=== PATIENT | male | born 1975 | race Caucasian/White ===

== ENCOUNTER 2018-01-11 20:30 | Emergency (ER) | payer SELFPAY ==
[2018-01-11] MEDS ORDERED: predniSONE TAB* 20 MG PO ONE (21:06)
[2018-01-11] MEDS ORDERED: Gabapentin CAP(*) 300 MG PO ONE (21:07)
[2018-01-11 21:15] VITALS: BP 141/98
--- NOTE | 2018-01-11 21:35 | ED ---
Héctor Wheeler Stephanie, scribed for Alen Chiang MD on 01/11/18 at 2107 . Upper Extremity Pain - HPI Summary HPI Summary: The pt is a 42 y/o M presenting to the ED with c/o L arm tingling and pain that began 3 weeks ago. He states that if he turns his neck or moves his L UE he feels a shooting pain from his shoulder to his elbow and numbness/tingling when he changes position. He denies recent injury or L UE weakness. The pt states he took a muscle relaxer which did not help his pain/numbness/tingling. - History of Current Complaint Chief Complaint: EDExtremityLower Stated Complaint: LT ARM INJURY Time Seen by Provider: 01/11/18 21:01 Hx Obtained From: Patient Mechanism Of Injury: Unknown Onset/Duration: Started Weeks Ago - 3 Timing: Constant Severity Currently: Moderate Pain Location: Arm - L Character: Sharp Aggravating Factor(s): Movement Alleviating Factor(s): Other - position Associated Signs & Symptoms: Positive: Negative - L UE weakness, Numbness/ Tingling - L arm - Allergies/Home Medications Allergies/Adverse Reactions: Allergies Allergy/AdvReac Type Severity Reaction Status Date / Time meperidine [From Demerol] Allergy Vomiting Verified 12/08/17 11:17 PMH/Surg Hx/FS Hx/Imm Hx Sensory History: Denies: Hx Legally Blind EENT History: Denies: Hx Deafness - Surgical History Surgery Procedure, Year, and Place: lt hand, lt knee Infectious Disease History: No Infectious Disease History: Denies: Traveled Outside the [place] in Last 30 Days - Family History Known Family History: Negative: Renal Disease - Social History Occupation: Employed Full-time Lives: With Family Alcohol Use: None Hx Substance Use: No Substance Use Type: Reports: None Hx Tobacco Use: Yes Smoking Status (MU): Heavy Every Day Tobacco Smoker Have You Smoked in the Last Year: Yes Review of Systems Negative: Fever Neurological: Other - L UE tingling Positive: Numbness - L UE. Negative: Weakness - L UE All Other Systems Reviewed And Are Negative: Yes Physical Exam - Summary Physical Exam Summary: Appearance: Well-appearing, Well-nourished, lying in bed comfortably Skin: Warm, dry, no obvious rash Eyes: sclera anicteric, no conjunctiva pallor ENT: mucous membranes moist, pharynx appears normal Neck: Supple, nontender, ROM good, reproducible pain with movement with L posterior neck, paresthesia back of L arm, strength in biceps and triceps nml, brachioradialis and biceps tendon reflex nml Respiratory: Clear to auscultation, no signs of respiratory distress Cardiovascular: Normal S1, S2. No murmurs. Normal distal pulses in tibial and radial bilaterally. Abdomen: Soft, nontender, normal active bowel sounds present Musculoskeletal: Normal, Strength/ROM Intact Neurological: A&Ox3, awake and alert, mentation is normal, speech is fluent and appropriate Psychiatric: affect is normal, does not appear anxious or depressed Triage Information Reviewed: Yes Vital Signs On Initial Exam: Initial Vitals Temp Pulse Resp BP Pulse Ox 98.5 F 102 20 140/88 98 01/11/18 20:31 01/11/18 20:31 01/11/18 20:31 01/11/18 20:31 01/11/18 20:31 Vital Signs Reviewed: Yes Diagnostics - Vital Signs Vital Signs Temp Pulse Resp BP Pulse Ox 01/11/18 20:31 98.5 F 102 20 140/88 98 - Laboratory Lab Statement: Any lab studies that have been ordered have been reviewed, and results considered in the medical decision making process. Course/Dx - Diagnoses Provider Diagnoses: Cervical radiculopathy Discharge - Sign-Out/Discharge Documenting (check all that apply): Discharge/Admit/Transfer - Discharge Plan Condition: Good Disposition: HOME Prescriptions: Gabapentin CAP(*) [Neurontin 300 CAP(*)] 300 mg PO BID #20 cap predniSONE [Prednisone] 40 mg PO DAILY #20 tablet Patient Education Materials: Cervical Radiculopathy (ED) Referrals: Savanna Byrd MD [Medical Doctor] - - Billing Disposition and Condition Condition: GOOD Disposition: HOME The documentation as recorded by the Héctor mckenzie Stephanie accurately reflects the service I personally performed and the decisions made by , Alen Chiang MD.
== END 2018-01-11 22:10 | disposition home or self-care (01) ==
LOC: ED 20:30
DX: M54.12 Radiculopathy, cervical region (principal); F17.200 Nicotine dependence, unspecified, uncomplicated; Z88.5 Allergy status to narcotic agent
CPT/HCPCS: 99282; A9270-GY; J7512

== ENCOUNTER 2018-01-14 16:39 | Emergency (ER) | payer SELFPAY ==
[2018-01-14] MEDS ORDERED: Diazepam TAB(*) 5 MG PO ONE (18:18)
[2018-01-14] MEDS ORDERED: HYDROcodone/ACETAMIN 5-325 MG* 1 TAB PO ONE (19:06)
--- NOTE | 2018-01-14 19:13 | ED ---
Upper Extremity Pain - HPI Summary HPI Summary: Complains of progressive left shoulder pain with radiation down left arm, numbness and tingling in left hand 3 weeks. Pain described as constant, sharp. States he cannot use his left hand due to pain it causes in his arm. Patient denies trauma, fever. Seen here 01/11 for same symptoms, diagnosed with cervical radiculopathy, given prescription for gabapentin and prednisone. States those medications made him vomit, and provided no relief. Also states he has had no relief with tramadol, ibuprofen, naproxen. Was told to follow up with orthopedics, but did not. Medical history is none. - History of Current Complaint Chief Complaint: EDExtremityUpper Stated Complaint: LT UPPER EXTREMITY PAIN Time Seen by Provider: 01/14/18 17:49 Hx Obtained From: Patient Mechanism Of Injury: Unknown Onset/Duration: Started Weeks Ago Timing: Constant Pain Location: Shoulder, Arm, Hand Character: Sharp Aggravating Factor(s): Lifting, Flexion, Extension Alleviating Factor(s): Nothing Associated Signs & Symptoms: Positive: Numbness/Tingling Related History: Dominant Hand Left - Allergies/Home Medications Allergies/Adverse Reactions: Allergies Allergy/AdvReac Type Severity Reaction Status Date / Time meperidine [From Demerol] AdvReac Vomiting Verified 01/14/18 17:34 medication with plastic Allergy Swelling Uncoded 01/14/18 17:35 coating Of Face,Lips,& Throat PMH/Surg Hx/FS Hx/Imm Hx Sensory History: Denies: Hx Legally Blind, Hx Deafness Opthamlomology History: Denies: Hx Legally Blind - Surgical History Surgery Procedure, Year, and Place: lt hand, lt knee Infectious Disease History: No Infectious Disease History: Denies: Traveled Outside the [place] in Last 30 Days - Family History Known Family History: Positive: None Negative: Renal Disease - Social History Alcohol Use: None Hx Substance Use: No Substance Use Type: Reports: None Hx Tobacco Use: Yes Smoking Status (MU): Heavy Every Day Tobacco Smoker Have You Smoked in the Last Year: Yes Review of Systems Constitutional: Negative Eyes: Negative ENT: Negative Cardiovascular: Negative Respiratory: Negative Gastrointestinal: Negative Genitourinary: Negative Positive: Myalgia Skin: Negative Neurological: Negative Psychological: Normal All Other Systems Reviewed And Are Negative: Yes Physical Exam - Summary Physical Exam Summary: No erythema, extra warmth, deformity, ecchymosis noted to left shoulder, left elbow, left wrist. Sensation and function and range of motion and PMS intact. 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 Tenderness to palpation in left trapezius muscle, and along left scapula, left deltoid, left triceps and biceps. Triage Information Reviewed: Yes Vital Signs On Initial Exam: Initial Vitals Temp Pulse Resp BP Pulse Ox 98.9 F 94 16 126/74 97 01/14/18 16:42 01/14/18 16:42 01/14/18 16:42 01/14/18 16:42 01/14/18 16:42 Vital Signs Reviewed: Yes Appearance: Positive: Well-Appearing Skin: Positive: Warm Head/Face: Positive: Normal Head/Face Inspection Eyes: Positive: Normal Neck: Positive: Supple Respiratory/Lung Sounds: Positive: Clear to Auscultation Cardiovascular: Positive: Normal Abdomen Description: Positive: Nontender Musculoskeletal: Positive: Normal Neurological: Positive: Normal Psychiatric: Positive: Normal AVPU Assessment: Alert - Jose L Coma Scale Best Eye Response: 4 - Spontaneous Best Motor Response: 6 - Obeys Commands Best Verbal Response: 5 - Oriented Coma Scale Total: 15 Diagnostics - Vital Signs Vital Signs Temp Pulse Resp BP Pulse Ox 01/14/18 18:27 16 01/14/18 16:42 98.9 F 94 16 126/74 97 - Laboratory Lab Statement: Any lab studies that have been ordered have been reviewed, and results considered in the medical decision making process. Course/Dx - Course Course Of Treatment: Vital signs unremarkable. Left shoulder pain and numbness without known trauma. Recent evaluation for same on 01/07. Has not followed up with orthopedics. States tramadol, ibuprofen, naproxen have provided no relief. Gabapentin and prednisone prescribed last visit provided no relief and made patient vomit. [facility] has been checked reference #[id number], patient has no record of opioid prescriptions though he has access to tramadol. We'll provide prescription of hydrocodone for 2 days and repeat need for orthopedic follow-up - Diagnoses Provider Diagnoses: Cervical radiculopathy Discharge - Sign-Out/Discharge Documenting (check all that apply): Discharge/Admit/Transfer - Discharge Plan Condition: Stable Disposition: HOME Prescriptions: HYDROcodone/ACETAMIN 5-325 MG* [[place] 5-325 TAB*] 1 tab PO Q6H PRN 2 Days #6 tab MDD 4-6 tabs PRN Reason: Pain Patient Education Materials: Cervical Radiculopathy (ED) Referrals: No Primary Care Phys,NOPCP [Primary Care Provider] - Bear Miller MD [Medical Doctor] - Additional Instructions: Follow-up with orthopedics. Return to the ED for any new or worsening symptoms - Billing Disposition and Condition Condition: STABLE Disposition: HOME
[2018-01-14 19:42] VITALS: BP 126/86
== END 2018-01-14 19:37 | disposition home or self-care (01) ==
LOC: ED 16:39
DX: M54.12 Radiculopathy, cervical region (principal); F17.200 Nicotine dependence, unspecified, uncomplicated; Z88.5 Allergy status to narcotic agent
CPT/HCPCS: 99282; A9270-GY

== ENCOUNTER 2018-02-02 15:10 | Emergency (ER) | payer SELFPAY ==
[2018-02-02 15:22] VITALS: BP 157/94
--- NOTE | 2018-02-02 17:14 | ED ---
Upper Extremity Pain - HPI Summary HPI Summary: Patient complains of left shoulder pain times months. Has been evaluated here multiple times for same. Imaging negative. Denies any new trauma. Patient finally followed up with Ortho and was given a cortisone shot which patient says made pain worse. Patient was prescribed prednisone and gabapentin for pain but states these make him nauseous and he cannot take the medication. Patient states he is taking ibuprofen with no relief. States cannot get another appointment with Ortho for 6 weeks, was never given a formal diagnosis by Ortho, and cannot afford PCP. Wants ED to fix his pain and do an MRI. Patient told that we cannot do an MRI for nonemergent shoulder pain nor can we treat a chronic condition with opioid medication. Patient was offered meloxicam in place of ibuprofen, but got angry and walked out. - History of Current Complaint Chief Complaint: EDExtremityUpper Stated Complaint: LT SHOULDER & ARM PAIN Time Seen by Provider: 02/02/18 16:34 Hx Obtained From: Patient Mechanism Of Injury: Unknown Onset/Duration: Started Weeks Ago Timing: Constant Severity Currently: Severe Pain Location: Shoulder Character: Sharp, Aching Aggravating Factor(s): Movement, Abduction Alleviating Factor(s): Nothing Associated Signs & Symptoms: Positive: Numbness/Tingling - Allergies/Home Medications Allergies/Adverse Reactions: Allergies Allergy/AdvReac Type Severity Reaction Status Date / Time meperidine [From Demerol] AdvReac Vomiting Verified 02/02/18 15:32 medication with plastic Allergy Swelling Uncoded 02/02/18 15:32 coating Of Face,Lips,& Throat Home Medications: Home Medications Ibuprofen TAB* [Motrin TAB* 800 MG] 800 mg PO Q6H 02/02/18 [History Confirmed ] Naproxen TAB* [Naprosyn 250 mg TAB*] 500 mg PO Q8H PRN 02/02/18 [History Confirmed 02/02/18] PMH/Surg Hx/FS Hx/Imm Hx Sensory History: Denies: Hx Legally Blind, Hx Deafness Opthamlomology History: Denies: Hx Legally Blind - Surgical History Surgery Procedure, Year, and Place: lt hand, lt knee Infectious Disease History: No Infectious Disease History: Denies: Traveled Outside the [place] in Last 30 Days - Family History Known Family History: Positive: None Negative: Renal Disease - Social History Alcohol Use: None Hx Substance Use: No Substance Use Type: Reports: None Hx Tobacco Use: Yes Smoking Status (MU): Light Every Day Tobacco Smoker Have You Smoked in the Last Year: Yes Review of Systems Constitutional: Negative Eyes: Negative ENT: Negative Cardiovascular: Negative Respiratory: Negative Gastrointestinal: Negative Genitourinary: Negative Positive: Arthralgia Skin: Negative Neurological: Negative Psychological: Normal All Other Systems Reviewed And Are Negative: Yes Physical Exam - Summary Physical Exam Summary: No ecchymosis, erythema, swelling, deformity noted to left shoulder joint Triage Information Reviewed: Yes Vital Signs On Initial Exam: Initial Vitals Temp Pulse Resp BP Pulse Ox 97.8 F 81 16 157/94 99 02/02/18 15:19 02/02/18 15:19 02/02/18 15:19 02/02/18 15:19 02/02/18 15:19 Vital Signs Reviewed: Yes Appearance: Positive: Well-Appearing Skin: Positive: Warm Head/Face: Positive: Normal Head/Face Inspection Eyes: Positive: Normal Neck: Positive: Supple Respiratory/Lung Sounds: Positive: Clear to Auscultation Cardiovascular: Positive: Normal Abdomen Description: Positive: Nontender Musculoskeletal: Positive: Other Neurological: Positive: Normal Psychiatric: Positive: Normal AVPU Assessment: Alert - [place] Coma Scale Best Eye Response: 4 - Spontaneous Best Motor Response: 6 - Obeys Commands Best Verbal Response: 5 - Oriented Coma Scale Total: 15 Diagnostics - Vital Signs Vital Signs Temp Pulse Resp BP Pulse Ox 02/02/18 15:19 97.8 F 81 16 157/94 99 - Laboratory Lab Statement: Any lab studies that have been ordered have been reviewed, and results considered in the medical decision making process. Course/Dx - Course Course Of Treatment: Patient eloped before treatment. Patient threatened to complain because he wasted all his time and no one was taking care of his problem. - Diagnoses Provider Diagnoses: Chronic left shoulder pain Discharge - Sign-Out/Discharge Documenting (check all that apply): Discharge/Admit/Transfer - Discharge Plan Condition: Stable Disposition: ELOPEMENT Referrals: No Primary Care Phys,NOPCP [Primary Care Provider] - - Billing Disposition and Condition Condition: STABLE Disposition: Elopement
== END 2018-02-02 17:06 | disposition home or self-care (01) ==
LOC: ED 15:10
DX: M25.512 Pain in left shoulder (principal); R20.0 Anesthesia of skin; Z88.5 Allergy status to narcotic agent; F17.200 Nicotine dependence, unspecified, uncomplicated
CPT/HCPCS: 99282

== ENCOUNTER 2018-02-02 17:33 | Emergency (ER) | payer OTHER ==
[2018-02-02 17:56] VITALS: BP 124/79
--- NOTE | 2018-02-02 18:30 | UC ---
Shoulder Pain HPI - HPI Summary HPI Summary: Patient to urgent care today with chief complaint of 2 months of left shoulder pain. No known injury. Has seen an orthopedic doctor in gotten a steroid injection without any relief. Patient has pain and scapular his shoulder radiating down his arm into his hand with numbness and tingling in his hand. - History of Current Complaint Chief Complaint: UCUpperExtremity Stated Complaint: SHOULDER INJURY Time Seen by Provider: 02/02/18 17:54 Hx Obtained From: Patient Onset/Duration: Gradual Onset, Lasting Weeks - 8, Still Present Timing: Constant Location Of Pain: Is Discrete @ Pain Intensity: 10 Pain Scale Used: 0-10 Numeric Character: Aching, Throbbing, Spasmodic, Stiffness, Burning Aggravating Factor(s): Movement, Lifting Alleviating Factor(s): Nothing Associated Signs And Symptoms: Positive: Numbness/Tingling Related History: Dominant Hand Right - Allergies/Home Medications Allergies/Adverse Reactions: Allergies Allergy/AdvReac Type Severity Reaction Status Date / Time meperidine [From Demerol] AdvReac Vomiting Verified 02/02/18 17:56 medication with plastic Allergy Swelling Uncoded 02/02/18 15:32 coating Of Face,Lips,& Throat PMH/Surg Hx/FS Hx/Imm Hx Previously Healthy: Yes - Surgical History Surgical History: Yes Surgery Procedure, Year, and Place: lt hand, lt knee - Family History Known Family History: Positive: None Negative: Renal Disease - Social History Occupation: Employed Full-time Lives: With Family Alcohol Use: None Substance Use Type: None Smoking Status (MU): Light Every Day Tobacco Smoker Have You Smoked in the Last Year: Yes Review of Systems Constitutional: Negative Skin: Negative Eyes: Negative ENT: Negative Respiratory: Negative Cardiovascular: Negative Gastrointestinal: Negative Genitourinary: Negative Motor: Negative Neurovascular: Negative Musculoskeletal: Arthralgia - left shoulder radiating in to forearm and hand Neurological: Paresthesia - left hand Psychological: Negative Is Patient Immunocompromised?: No All Other Systems Reviewed And Are Negative: Yes Physical Exam Triage Information Reviewed: Yes Appearance: Well-Appearing, Well-Nourished, Pain Distress Vital Signs: Initial Vital Signs Temp 99 F 02/02/18 17:46 Pulse 76 02/02/18 17:46 Resp 20 02/02/18 17:46 BP 124/79 02/02/18 17:46 Pulse Ox 95 02/02/18 17:46 Vital Signs Reviewed: Yes Eye Exam: Normal Eyes: Positive: Conjunctiva Clear ENT Exam: Normal ENT: Positive: Normal ENT inspection, Hearing grossly normal. Negative: Trismus , Muffled voice, Hoarse voice Dental Exam: Normal Neck exam: Normal Neck: Positive: Supple, Nontender, No Lymphadenopathy Respiratory Exam: Normal Respiratory: Positive: Chest non-tender, No respiratory distress, No accessory muscle use Cardiovascular Exam: Normal Cardiovascular: Positive: RRR, Pulses Normal, Brisk Capillary Refill Musculoskeletal Exam: Other Musculoskeletal: Positive: No Edema, Strength Limited @ - left arm, ROM Limited @ - left shoulder Neurological Exam: Normal Neurological: Positive: Alert, Muscle Tone Normal Psychological Exam: Normal Skin Exam: Normal Diagnostics - Radiology No standard instances Xray Interpretation: Positive (See Comments) - Patient Name: KATERYNA LITTLEJOHN Medical Record#: [id number] Ordering Physician: Blanca Willoughby NP Acct.#: [id number] : 1975 Age: 42 Sex: M Location: [facility] Exam Date: 02/02/181811 ADM Status: REG ER Order Information: SP CERVICAL 4+VWS Accession Number: [id number] CPT: 74321 Indication: Left shoulder pain. 5 views of the cervical spine demonstrates vertebral bodies to be normal in height. Disc space scarring at C5-C6 is noted with dorsal and ventral osteophyte formation. Spinal canal appears to be intact. IMPRESSION: Degenerative disc disease with spondylytic ridge at C5-C6. No fracture is noted. <Electronically signed by Radha Denton MD in OV> 02/02/181831 Dictated By: Radha Denton MD Dictated Date/Time: 02/02/181831 Transcribed Date/Time: 02/02/181830 Copy to: CC:Krista Harvey MD; Blanca Willoughby NP; No Primary Care Phys,NOPCP Imaging - [facility] Imaging [facility] Care [address] [address] ph [phone] ph ([phone]) ph ([phone]) 1 of 1 Radiology Interpretation Completed By: ED Physician, Radiologist Shoulder Course/Dx - Course Assessment/Plan: Medrol Dosepak, Flexeril, Pepcid, referral to extensivist clinic if he's unable to get in to see primary care doctor referrals for primary care doctor this week for further evaluation - Differential Dx/Diagnosis Provider Diagnoses: Spondylytic ridge C5-C6, degenerative disc disease, left shoulder pain Discharge - Sign-Out/Discharge Documenting (check all that apply): Discharge/Admit/Transfer - Discharge Plan Condition: Stable Disposition: HOME Prescriptions: Cyclobenzaprine TAB* [Flexeril 10 MG TAB*] 10 mg PO TID PRN #21 tab PRN Reason: Pain Famotidine TAB 40 MG(NF) [Pepcid TAB 40 MG(NF)] 40 mg PO DAILY #14 tab methylPREDNISolone [Medrol] 4 mg PO .SEE RODRIGO INSTRUCTION #1 rodrigo Patient Education Materials: Degenerative Disc Disease (ED), Spondylolisthesis (ED) [place] [facility] [place]] - 2 Days Additional Instructions: [facility] or the free clinic in [place] can help you with insurance if that is an issue with getting a primary care doctor-- Kateryna if you having trouble getting a primary care doctor this week I want to call [phone] and asked for the extensivist clinic on the third floor. This is a clinic the hospital has set up for folks could not get into primary care doctor's in a timely fashion. - Billing Disposition and Condition Condition: STABLE Disposition: Home
--- NOTE | 2018-02-02 18:35 | RAD ---
Indication: Left shoulder pain. 5 views of the cervical spine demonstrates vertebral bodies to be normal in height. Disc space scarring at C5-C6 is noted with dorsal and ventral osteophyte formation. Spinal canal appears to be intact. IMPRESSION: Degenerative disc disease with spondylytic ridge at C5-C6. No fracture is noted.
== END 2018-02-02 19:30 | disposition home or self-care (01) ==
LOC: UCEAST 17:33
DX: M50.322 Other cervical disc degeneration at C5-C6 level (principal); M47.812 Spondylosis without myelopathy or radiculopathy, cervical region; Z88.2 Allergy status to sulfonamides; F17.200 Nicotine dependence, unspecified, uncomplicated
CPT/HCPCS: 72050; 99212; G0463

== ENCOUNTER 2018-09-30 05:47 | Inpatient (IN) | payer MEDICAID, OTHER ==
[~2018-09-30 05:47] MED LIST: Buffered Lidocaine 1% SYRIN* 1 ML/SYRINGE INTRADERM ONE
--- OUTSIDE RECORDS SUMMARY | 2018-09-30 05:51 | XMS REPORT | Continuity of Care Document ---
:1975 External Reference #:[id number] Author Name Radha Cruz Care Team Providers Name Role Phone Luz Maria Durham MD Primary Care Physician Unavailable Payers Type Date Identification Numbers Payment Provider Subscriber Effective: 2017 Policy Number: [id number] Medicaid Lloyd Tom Expires: 2018 Group Name: 1 1 [address] PayID: [id number] [place] [address] Expires: 2018 Policy Number: [id number] [facility] PayID: [id number] [address] [address] [place] [address] Effective: 2018 Policy Number: [id number] [employer] Lloyd Tom PayID: [id number] [address] [address] [place] [address] Advance Directives Description No Information Available Problems Date Description Provider Status Onset: 03/16/2018 Traumatic brain injury Wesley Amador M.D. Active Family History Date Family Member(s) Problem(s) Comments Father Unknown Mother due to Edema in legs () - Leg injury after skiing accident Siblings 1 Social History Type Date Description Comments Sex Unknown Marital Status Significant Other Lives With Spouse Lives With Girlfriend Occupation Unemployed Work Status Currently Working ETOH Use Denies alcohol use Recreational Drug Use Denies Drug Use Tobacco Use Start: Unknown End: Patient is a former smoker Unknown Smoking Status Reviewed: 09/02/18 Patient is a former smoker Exercise Type/Frequency Exercises regularly Allergies, Adverse Reactions, Alerts Date Description Reaction Status Severity Comments 01/19/2018 Demerol Active 03/16/2018 Plastic Active Medications Medication Date Status Form Strength Qnty SIG Indications Ordering Provider Hydrocodone-Acetam Active Tablets 10-325mg Take 1 Unknown inophen /0000 Tablet By Mouth Every 4 Hours as Needed For Pain -- Maximum Daily Dose Of 6 Per Day Hydrocodone-Acetam 03/12 Hx Tablets 325mg 28tab 1 tab by Moustapha walton s mouth 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, [employer] - 6 hours as 03/12 needed for pain Meloxicam 03/12 Hx Tablets 7.5mg 60tab 1 -2 tablet M54.12 s by mouth Rosina, [employer] [facility] - once daily 09/02 as needed with food Hydrocodone-Acetam 03/12 Hx Tablets 5-325mg 120ta 1 tab by Moustapha walton bs mouth 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, [employer] - 6 hours as 09/02 needed for pain No Active 02/12 Hx Unknown Medications - 03/12 Naproxen 01/19 Hx Tablets 500mg 28tab take one M75.52 s tablet by F - mouth every Nita, 02/12 12 hours as needed for pain and swelling for 2 weeks. take with food. Hydrocodone-Acetam Hx Tablets 5-325mg 1 or 2 tabs Unknown inophen /0000 by mouth - every 6-8 01/18 hours needed for pain Prednisone Hx Solution 5mg/5ML 20 Unknown /0000 milliliters - every day 01/18 for 4 days then taper by 5 milliliters daily until stopped Cyclobenzaprine Hx Tablets 10mg Take 1 Unknown HCL /0000 Tablet By - Mouth Three 02/12 Times Daily as Needed For Pain Famotidine Hx Tablets 40mg Take 1 Unknown /0000 Tablet By - Mouth Every Methylprednisolone Hx TBPK 4mg Take as Unknown /0000 Directed - According 02/12 To Famotidine Hx Tablets 40mg 1 by mouth Unknown /0000 every day - 03/15 Mobic Hx Tablets 7.5mg 1 by mouth Unknown /0000 every day - 09/02 Morphine Sulfate Hx Tablets 15mg take 1 tab Unknown /0000 by mouth - every 6 / hours needed for breakthroug h pain Medications Administered in Office Medication Date Status Form Strength Qnty SIG Indications Ordering Provider Depomedrol Administered Injection Jono F 40MG 018 MD Nita Depomedrol Administered Injection Lucy 40MG 018 Marker, RPA-C Immunizations Description No Information Available Vital Signs Date Vital Result Comment 09/02/2018 1:01pm Height 68.25 inches 5'8.25" Weight 199.00 lb Heart Rate 77 /min BP Systolic 133 mmHg BP Diastolic 88 mmHg Body Temperature 98.1 F Pain Level 8 O2 % BldC Oximetry 97 % BMI (Body Mass Index) 30.0 kg/m2 08/26/2018 10:33am Height 70 inches 5'10" Heart Rate 88 /min Respiratory Rate 19 /min Pain Level 9 07/29/2018 10:25am Height 70 inches 5'10" Weight 200.00 lb Heart Rate 79 /min BP Systolic 126 mmHg BP Diastolic 83 mmHg Body Temperature 98.5 F O2 % BldC Oximetry 96 % BMI (Body Mass Index) 28.7 kg/m2 07/19/2018 12:07pm Height 70 inches 5'10" Weight 199.00 lb BP Systolic Sitting 130 mmHg BP Diastolic Sitting 80 mmHg Pain Level 9 BMI (Body Mass Index) 28.6 kg/m2 06/21/2018 2:29pm Height 70 inches 5'10" Weight 199.00 lb Heart Rate 69 /min Respiratory Rate 16 /min Pain Level 9 BMI (Body Mass Index) 28.6 kg/m2 06/15/2018 11:13am Height 70 inches 5'10" Weight 199.00 lb BP Systolic Sitting 122 mmHg BP Diastolic Sitting 70 mmHg Pain Level 8 BMI (Body Mass Index) 28.6 kg/m2 03/16/2018 3:11pm Height 70 inches 5'10" Weight 199.00 lb Heart Rate 72 /min BP Systolic 126 mmHg BP Diastolic 68 mmHg BMI (Body Mass Index) 28.6 kg/m2 03/12/2018 8:27am Height 70 inches 5'10" Weight 199.75 lb Heart Rate 88 /min BP Systolic 132 mmHg BP Diastolic 80 mmHg Body Temperature 97.1 F O2 % BldC Oximetry 97 % BMI (Body Mass Index) 28.7 kg/m2 03/05/2018 3:40pm Height 70 inches 5'10" Weight 180.00 lb BP Systolic Sitting 150 mmHg BP Diastolic Sitting 90 mmHg Pain Level 8 BMI (Body Mass Index) 25.8 kg/m2 02/12/2018 8:50am Height 70 inches 5'10" Weight 180.00 lb BP Systolic Sitting 130 mmHg BP Diastolic Sitting 90 mmHg Pain Level 8 BMI (Body Mass Index) 25.8 kg/m2 02/04/2018 2:27pm Height 70 inches 5'10" Weight 180.00 lb Heart Rate 78 /min BP Systolic 138 mmHg BP Diastolic 80 mmHg Respiratory Rate 12 /min Body Temperature 98.5 F Pain Level 10 BMI (Body Mass Index) 25.8 kg/m2 01/19/2018 1:33pm Height 70 inches 5'10" Weight 180.00 lb Heart Rate 80 /min BP Systolic 140 mmHg BP Diastolic 78 mmHg Respiratory Rate 12 /min Pain Level 9 BMI (Body Mass Index) 25.8 kg/m2 Results Test Date Facility Test Result H/L Range Note Order 09/02/2018 [facility] In-House EKG <pending> Lipid Profile 03/16/2018 [facility] Triglycerides 119 mg/dL 1 (Trig/Chol/HDL) [address] [place] [address] [phone] Cholesterol 214 mg/dL 2 HDL Cholesterol 60.5 mg/dL 3 LDL Cholesterol 130 mg/dL 4 Comp Metabolic Panel 03/16/2018 [facility] Sodium 139 mmol/L N 135-145 [address] [place] [address] [phone] Potassium 4.2 mmol/L N 3.5-5.0 Chloride 103 mmol/L N 101-111 Co2 Carbon Dioxide 26 mmol/L N 22-32 Anion Gap 10 mmol/L N 2-11 Glucose 95 mg/dL N 70-100 Blood Urea Nitrogen 17 mg/dL N 6-24 Creatinine 0.89 mg/dL N 0.67-1.17 BUN/Creatinine Ratio 19.1 N 8-20 Calcium 9.6 mg/dL N 8.6-10.3 Total Protein 7.2 g/dL N 6.4-8.9 Albumin 4.7 g/dL N 3.2-5.2 Globulin 2.5 g/dL N 2-4 Albumin/Globulin Ratio 1.9 N 1-3 Total Bilirubin 0.50 mg/dL N 0.2-1.0 Alkaline Phosphatase 42 U/L N 34-104 Alt 33 U/L N 7-52 Ast 23 U/L N 13-39 Egfr Non- 94.7 >60 Egfr 114.6 >60 5 Drug Abuse 20 03/12/2018 [facility] Urine Amphetamine Negative ng/mL [address] [place] [address] [phone] Urine Barbiturates Negative ng/mL 7 Urine Benzodiazepines Negative ng/mL 8 Urine Cocaine Negative ng/mL 9 Urine Phencyclidine Negative ng/mL Cutoff: 25 Urine Tetrahydrocannabinol Presumptive Posi <SEE NOTE> Abnormal Cutoff: 50 10 ng/mL Creatinine, Urine 142.2 mg/dL Specific [place] 1.021 pH 5.9 Oxidants Negative 11 Adulterants Comment Normal Codeine, Ur Not Detected ng/mL Cutoff: 25 12 Dgvqtpg-8-jbxe-glucuronide, Ur Not Detected ng/mL 13 Morphine, Ur Not Detected ng/mL Cutoff: 25 14 Spnejvtm-0-hvez-glucuronide, U Not Detected ng/mL 15 6-monoacetylmorphine, Ur Not Detected ng/mL Cutoff: 25 16 Hydrocodone, Ur Not Detected ng/mL Cutoff: 25 17 Norhydrocodone, Ur Not Detected ng/mL Cutoff: 25 18 Dihydrocodeine, Ur Not Detected ng/mL Cutoff: 25 19 Hydromorphone, Ur Not Detected ng/mL Cutoff: 25 20 Cbgxyadsfjgdd0akabxxbhqgooiln Not Detected ng/mL 21 Oxycodone, Ur Not Detected ng/mL Cutoff: 25 22 Noroxycodone, Ur Not Detected ng/mL Cutoff: 25 23 Oxymorphone, Ur Not Detected ng/mL Cutoff: 25 24 Fpfvqnfyqyw-6-whms-glucuronide Not Detected ng/mL 25 Noroxymorphone, Ur Not Detected ng/mL Cutoff: 25 26 Fentanyl, Ur Not Detected ng/mL Cutoff: 2 27 Norfentanyl, Ur Not Detected ng/mL Cutoff: 2 28 Meperidine, Ur Not Detected ng/mL Cutoff: 25 29 Normeperidine, Ur Not Detected ng/mL Cutoff: 25 30 Naloxone, Ur Not Detected ng/mL Cutoff: 25 31 Sicbxacx-0-yuhk-glucuronide, U Not Detected ng/mL 32 Methadone, Ur Not Detected ng/mL Cutoff: 25 33 Eddp, Ur Not Detected ng/mL Cutoff: 25 34 Propoxyphene, Ur Not Detected ng/mL Cutoff: 25 35 Norpropoxyphene, Ur Not Detected ng/mL Cutoff: 25 36 Tramadol, Ur Not Detected ng/mL Cutoff: 25 37 O-desmethyltramadol, Ur Not Detected ng/mL Cutoff: 25 38 Tapentadol, Ur Not Detected ng/mL Cutoff: 25 39 N-desmethyltapentadol, Ur Not Detected ng/mL Cutoff: 50 40 Pyiuugvhqa-yueq-svgeeunkwzi, U Not Detected ng/mL 41 Buprenorphine, Ur Not Detected ng/mL Cutoff: 5 42 Norbuprenorphine, Ur Not Detected ng/mL Cutoff: 5 43 Norbuprenorphine glucuronide Not Detected ng/mL Cutoff: 20 44 Opioid Interpretation See Comment 45 THC Confirmation 03/12/2018 [facility] Urine Carboxy 413 ng/mL [address] [place] [address] [phone] Urine THC Interpretation Positive. 47 1 Desirable: <150 Borderline High: 150-199 High: 200-499 Very High: >500 2 Desirable: <200 Borderline High: 200-239 High: >239 3 Low: <40 Desirable: 40-60 High: >60 4 Desirable: <100 Near Optimal: 100-129 Borderline High: 130-159 High: 160-189 Very High: >189 5 Because ethnic data is not always readily available, this report includes an eGFR for both -Americans and non- Americans. The National Kidney Disease Education Program (NKDEP) does not endorse the use of the MDRD equation for patients that are not between the ages of 18 and 70, are , have extremes of body size, muscle mass, or nutritional status, or are non- or non-. According to the National Kidney Foundation, irrespective of diagnosis, the stage of the disease is based on the level of kidney function: Stage Description GFR(mL/min/1.73 m(2)) 1 Kidney damage with normal or decreased GFR 90 2 Kidney damage with mild decrease in GFR 60-89 3 Moderate decrease in GFR 30-59 4 Severe decrease in GFR 15-29 5 Kidney failure <15 (or dialysis) 6 REFERENCE VALUE Cutoff: 500 7 REFERENCE VALUE Cutoff: 200 8 REFERENCE VALUE Cutoff: 100 9 REFERENCE VALUE Cutoff: 150 10 Presumptive Positive Drug confirmation to follow. Presumptive Positive means that the screening method is positive, but the test needs to be run by a confirmatory method before being finalized. ADDITIONAL INFORMATION This report is intended for use in clinical monitoring or management of patients. It is not intended for use in employment-related testing. 11 REFERENCE VALUE Cutoff: 200 mg/L 12 Tylenol 3 13 Metabolite of codeine REFERENCE VALUE Cutoff: 100 14 Mary Morrissey, Contin; Also a minor metabolite (10%) of codeine and can be seen in low concentrations (<2,000 ng/mL) with poppy seed ingestion. 15 Metabolite of morphine REFERENCE VALUE Cutoff: 100 16 Metabolite of heroin 17 Lortab, [place], Vicodin; Also a very minor metabolite of codeine and impurity (<1%) of oxycodone. 18 Metabolite of hydrocodone 19 Metabolite of hydrocodone 20 Dilaudid, Exalgo; Also a metabolite of hydrocodone and a minor (<5%) metabolite of morphine. 21 Metabolite of hydromorphone REFERENCE VALUE Cutoff: 100 22 Endocet, Percocet, Oxycontin 23 Metabolite of oxycodone 24 Numorphan, Opana; Also a metabolite of oxycodone. 25 Metabolite of oxymorphone REFERENCE VALUE Cutoff: 100 26 Metabolite of oxymorphone 27 Actiq, Duragesic, [place] 28 Metabolite of fentanyl 29 Demerol 30 Metabolite of meperidine 31 Narcan 32 Metabolite of naloxone REFERENCE VALUE Cutoff: 100 33 Dolophine 34 Metabolite of methadone 35 Darvon, Darvocet 36 Metabolite of propoxyphene 37 Tradol, Ultram, Ultracet 38 Metabolite of tramadol 39 Nucynta 40 Metabolite of tapentadol 41 Metabolite of tapentadol REFERENCE VALUE Cutoff: 100 42 Buprenex, Suboxone 43 Metabolite of buprenorphine 44 Metabolite of buprenorphine 45 No opioids were detected. The absence of expected drug(s) and/or drug metabolite(s) may indicate non-compliance, altered pharmacokinetics, inappropriate timing of specimen collection relative to drug administration, diluted/adulterated urine, or limitations of testing. ADDITIONAL INFORMATION This test was developed and its performance characteristics determined by [facility] in a manner consistent with CLIA requirements. This test has not been cleared or approved by the U.S. Food and Drug Administration. Test Performed by: [facility] - [address] [address] 46 REFERENCE VALUE Cutoff: 3.0 47 ADDITIONAL INFORMATION This report is intended for use in clinical monitoring and management of patients. It is not intended for use in employment-related testing. This test was developed and its performance characteristics determined by [facility] in a manner consistent with CLIA requirements. This test has not been cleared or approved by the U.S. Food and Drug Administration. Test Performed by: [facility] - [address] [address] Procedures Date Code Description Status 09/02/2018 08487 EKG Tracing & Interpretation Completed 06/21/201807338 Inject/Drain Joint/Bursa Major W/O US Completed 02/26/2018 81350 Nerve Conduction 07-08 Studies Completed 02/26/2018 87964 Needle Electromyography Complete, Five Or More Muscles Completed Studied 01/19/201849444 Inject/Drain Joint/Bursa Major W/O US Completed Encounters Type Date Location Provider Dx Diagnosis Office Visit 07/29/2018 [facility] Moustapha Almaguer, MADY R42 Dizziness and 10:20a Medicine - giddiness [place] H53.8 Other visual disturbances 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 [facility] Noriega S06.9x9S Unsp intracranial injury w Loc of unsp duration, sequela M79.1 Myalgia Office Visit 03/12/2018 8:40a [facility] Internal Moustapha Rosina, M54.12 Radiculopathy, Medicine - [employer] cervical region [place] Z13.220 Encounter for screening for lipoid disorders Z13.1 Encounter for screening for diabetes mellitus M25.511 Pain in right shoulder M54.2 Cervicalgia Office Visit 03/05/2018 [facility] M47.892 Other 3:45p [facility] Ma MD spondylosis, cervical region Z71.6 Tobacco abuse counseling Office 02/12/2018 [facility] M54.12 Radiculopathy, Visit 9:30a [facility] Ma MD cervical region M54.2 Cervicalgia M47.892 Other spondylosis, cervical region S09.90xS Unspecified injury of head, sequela Office Visit 02/04/2018 Orthopedic Jono Day M54.12 Radiculopathy, 1:30p Services Of MD Nita cervical region [facility] M54.2 Cervicalgia M75.52 Bursitis of left shoulder Office Visit 01/19/2018 1:45p Orthopedic Jono Day M75.52 Bursitis of Services Of MD Nita left shoulder [facility] M75.42 Impingement syndrome of left shoulder Plan of Treatment Future Appointment(s):12/22/2018 1:00 pm - Jono Moya MD at [facility]11/01/2018 2:30 pm - Violeta Ma MD at [facility]10/11/2018 1:00 pm - Violeta Ma MD at [facility]09/30/2018 7:30 am - Sophie Patterson PA-C at [facility]09/30/2018 7:30 am - Violeta Ma MD at [facility]09/15/2018 9:30 am - Violeta Ma MD at [facility]09/02/2018 - Moustapha Almaguer, NPZ01.818 Encounter for other preprocedural examinationComments:Have the bloodwork done soon. You should avoid aspirin, NSAIDs (ibuprofen, Motrin, aleve) and supplements 7 days prior to the procedure.M50.122 Cervical disc disorder at C5-C6 level with wlfakqvpuwomsP52.123 Cervical disc disorder at C6-C7 level with zcumtvvwraxnjE82.2x9D Diffuse traumatic brain injury with loss of consciousness of
--- OUTSIDE RECORDS SUMMARY | 2018-09-30 05:51 | XMS REPORT | Continuity of Care Document ---
:1975 External Reference #:[id number] Author Name May Dueñas Care Team Providers Name Role Phone Luz Maria Durham MD Primary Care Physician Unavailable Payers Type Date Identification Numbers Payment Provider Subscriber Effective: 2017 Policy Number: [id number] Medicaid Lloyd Tom Expires: 2018 Group Name: 1 1 [address] PayID: [id number] [place] [address] Expires: 2018 Policy Number[id number] 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 - once daily 09/02 as needed with food Hydrocodone-Acetam 03/12 Hx Tablets 5-325mg 120ta 1 tab by Moustapha walton bs mouth 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, ERP PROGRAMMER - 6 hours as 09/02 needed for [...] Available Vital Signs Date Vital Result Comment 09/15/2018 9:23am Height 68.25 inches 5'8.25" Weight 199.00 lb BP Systolic Sitting 140 mmHg BP Diastolic Sitting 90 mmHg Pain Level 8 BMI (Body Mass Index) 30.0 kg/m2 09/02/2018 1:01pm Height 68.25 inches 5'8.25" Weight [...] Date Facility Test Result H/L Range Note CBC No Diff 09/23/2018 [facility] White Blood 10.3 10^3/uL N 3.5-10.[address] [place] [address] [phone] Red Blood Count 4.93 10^6/uL N 4.00-5.40 Hemoglobin 15.7 g/dL N 14.0-18.0 Hematocrit 46 % N 42-52 Mean Corpuscular Volume 93 fL N 80-94 Mean Corpuscular Hemoglobin 32 pg High 27-31 Mean Corpuscular HGB Conc 34 g/dL N 31-36 Red Cell Distribution Width 14 % N 10.5-15 Platelet Count 178 10^3/uL N 150-450 Mean Platelet Volume 10.0 fL N 7.4-10.4 Inr/Protime 09/23/2018 [facility] Inr 0.82 N 0.77-1.[address] [place] [address] [phone] Laboratory test 09/23/2018 [facility] Partial 28.4 seconds N 26.0-36.3 [place] [address] PTT [phone] Basic Metabolic 09/23/2018 [facility] Sodium 140 mmol/L N 135- [address] [place] [address] [phone] Potassium 4.6 mmol/L N 3.5-5.0 Chloride 105 mmol/L N 101-111 Co2 Carbon Dioxide 29 mmol/L N 22-32 Anion Gap 6 mmol/L N 2-11 Glucose 94 mg/dL N 70-100 Blood Urea Nitrogen 21 mg/dL N 6-24 Creatinine 0.92 mg/dL N 0.67-1.17 BUN/Creatinine Ratio 22.8 High 8-20 Calcium 9.8 mg/dL N 8.6-10.3 Egfr Non- 90.7 >60 Egfr 109.7 >60 1 Urinalysis Profile 09/23/2018 [facility] Urine Color Yellow [address] [place] [address] [phone] Urine Appearance Cloudy Urine Specific [place] 1.021 N 1.010-1.030 Urine pH 6.0 N 5-9 Urine Urobilinogen Negative Negative Urine Ketones Negative Negative Urine Protein Negative Negative Urine Leukocytes Negative Negative Urine Blood Negative Negative Urine Nitrite Negative Negative Urine Bilirubin Negative Negative Urine Glucose Negative Negative Type & Screen 09/23/2018 [facility] Patient Blood Type A Positive [address] [place] [address] [phone] Antibody Screen NEGATIVE CBC Auto Diff 09/10/2018 [facility] White Blood 10.0 10^3/uL N 3.5-10.8 [facility] [place] [address] [phone] Red Blood Count 4.87 10^6/uL N 4.00-5.40 Hemoglobin 15.5 g/dL N 14.0-18.0 Hematocrit 45 % N 42-52 Mean Corpuscular Volume 93 fL N 80-94 Mean Corpuscular Hemoglobin 32 pg High 27-31 Mean Corpuscular HGB Conc 34 g/dL N 31-36 Red Cell Distribution Width 14 % N 10.5-15 Platelet Count 155 10^3/uL N 150-450 Mean Platelet Volume 10.6 fL High 7.4-10.4 Abs Neutrophils 7.5 10^3/uL N 1.5-7.7 Abs Lymphocytes 1.8 10^3/uL N 1.0-4.8 Abs Monocytes 0.5 10^3/uL N 0-0.8 Abs Eosinophils 0.1 10^3/uL N 0-0.6 Abs Basophils 0 10^3/uL N 0-0.2 Abs Nucleated RBC 0 10^3/uL Granulocyte % 75.1 % Lymphocyte % 18.5 % Monocyte % 5.4 % Eosinophil % 0.8 % Basophil % 0.2 % Nucleated Red Blood Cells % 0 Basic Metabolic Panel 09/10/2018 [facility] Sodium 140 mmol/L N 135-145 [address] [place] [address] [phone] Potassium 3.9 mmol/L N 3.5-5.0 Chloride 106 mmol/L N 101-111 Co2 Carbon Dioxide 26 mmol/L N 22-32 Anion Gap 8 mmol/L N 2-11 Glucose 116 mg/dL High 70-100 Blood Urea Nitrogen 16 mg/dL N 6-24 Creatinine 0.87 mg/dL N 0.67-1.17 BUN/Creatinine Ratio 18.4 N 8-20 Calcium 10.0 mg/dL N 8.6-10.3 Egfr Non- 96.7 >60 Egfr 117.0 >60 2 Comp Metabolic Panel 03/16/2018 [facility] Sodium 139 mmol/L N 135-145 [address] [place] [address] [phone] Potassium 4.2 mmol/L N 3.5-5.0 Chloride 103 [...] Egfr Non- 94.7 >60 Egfr 114.6 >60 3 Lipid Profile 03/16/2018 [facility] Triglycerides 119 mg/dL 4 (Trig/Chol/HDL) [address] [place] [address] [phone] Cholesterol 214 mg/dL 5 HDL Cholesterol 60.5 mg/dL 6 LDL Cholesterol 130 mg/dL 7 Drug Abuse 20 03/12/2018 [facility] Urine Amphetamine Negative ng/mL [address] [place] [address] [phone] Urine Barbiturates Negative ng/mL 9 Urine Benzodiazepines Negative ng/mL 10 Urine Cocaine Negative ng/mL 11 Urine Phencyclidine Negative ng/mL Cutoff: 25 Urine Tetrahydrocannabinol Presumptive Posi <SEE NOTE> Abnormal Cutoff: 50 12 ng/mL Creatinine, Urine 142.2 mg/dL Specific [place] 1.021 pH 5.9 Oxidants Negative 13 Adulterants Comment Normal Codeine, Ur Not Detected ng/mL Cutoff: 25 14 Lmtszlc-8-fjdc-glucuronide, Ur Not Detected ng/mL 15 Morphine, Ur Not Detected ng/mL Cutoff: 25 16 Xipbqjqp-8-cgsf-glucuronide, U Not Detected ng/mL 17 6-monoacetylmorphine, Ur Not Detected ng/mL Cutoff: 25 18 Hydrocodone, Ur Not Detected ng/mL Cutoff: 25 19 Norhydrocodone, Ur Not Detected ng/mL Cutoff: 25 20 Dihydrocodeine, Ur Not Detected ng/mL Cutoff: 25 21 Hydromorphone, Ur Not Detected ng/mL Cutoff: 25 22 Rkowrewoudfnv8mymsedeltxokeml Not Detected ng/mL 23 Oxycodone, Ur Not Detected ng/mL Cutoff: 25 24 Noroxycodone, Ur Not Detected ng/mL Cutoff: 25 25 Oxymorphone, Ur Not Detected ng/mL Cutoff: 25 26 Hncasfafdbw-7-myzn-glucuronide Not Detected ng/mL 27 Noroxymorphone, Ur Not Detected ng/mL Cutoff: 25 28 Fentanyl, Ur Not Detected ng/mL Cutoff: 2 29 Norfentanyl, Ur Not Detected ng/mL Cutoff: 2 30 Meperidine, Ur Not Detected ng/mL Cutoff: 25 31 Normeperidine, Ur Not Detected ng/mL Cutoff: 25 32 Naloxone, Ur Not Detected ng/mL Cutoff: 25 33 Cnzahpyz-0-xfeh-glucuronide, U Not Detected ng/mL 34 Methadone, Ur Not Detected ng/mL Cutoff: 25 35 Eddp, Ur Not Detected ng/mL Cutoff: 25 36 Propoxyphene, Ur Not Detected ng/mL Cutoff: 25 37 Norpropoxyphene, Ur Not Detected ng/mL Cutoff: 25 38 Tramadol, Ur Not Detected ng/mL Cutoff: 25 39 O-desmethyltramadol, Ur Not Detected ng/mL Cutoff: 25 40 Tapentadol, Ur Not Detected ng/mL Cutoff: 25 41 N-desmethyltapentadol, Ur Not Detected ng/mL Cutoff: 50 42 Kqadvyyppj-ffnw-nampiwdnjcu, U Not Detected ng/mL 43 Buprenorphine, Ur Not Detected ng/mL Cutoff: 5 44 Norbuprenorphine, Ur Not Detected ng/mL Cutoff: 5 45 Norbuprenorphine glucuronide Not Detected ng/mL Cutoff: 20 46 Opioid Interpretation See Comment 47 THC Confirmation 03/12/2018 [facility] Urine Carboxy 413 ng/mL [address] [place] [address] [phone] Urine THC Interpretation Positive. 49 1 Because ethnic data is not always readily [...] 15-29 5 Kidney failure <15 (or dialysis) 2 Because ethnic data is not always readily [...] 15-29 5 Kidney failure <15 (or dialysis) 3 Because ethnic data is not always readily [...] 15-29 5 Kidney failure <15 (or dialysis) 4 Desirable: <150 Borderline High: 150-199 High: 200-499 Very High: >500 5 Desirable: <200 Borderline High: 200-239 High: >239 6 Low: <40 Desirable: 40-60 High: >60 7 Desirable: <100 Near Optimal: 100-129 Borderline High: 130-159 High: 160-189 Very High: >189 8 REFERENCE VALUE Cutoff: 500 9 REFERENCE VALUE Cutoff: 200 10 REFERENCE VALUE Cutoff: 100 11 REFERENCE VALUE Cutoff: 150 12 Presumptive Positive Drug confirmation to follow. Presumptive Positive means that the screening method is positive, but the test needs to be run by a confirmatory method before being finalized. ADDITIONAL INFORMATION This report is intended for use in clinical monitoring or management of patients. It is not intended for use in employment-related testing. 13 REFERENCE VALUE Cutoff: 200 mg/L 14 Tylenol 3 15 Metabolite of codeine REFERENCE VALUE Cutoff: 100 16 Mary Morrissey, Contin; Also a minor metabolite (10%) of codeine and can be seen in low concentrations (<2,000 ng/mL) with poppy seed ingestion. 17 Metabolite of morphine REFERENCE VALUE Cutoff: 100 18 Metabolite of heroin 19 Lortab, Veteran, Vicodin; Also a very minor metabolite of codeine and impurity (<1%) of oxycodone. 20 Metabolite of hydrocodone 21 Metabolite of hydrocodone 22 Dilaudid, Exalgo; Also a metabolite of hydrocodone and a minor (<5%) metabolite of morphine. 23 Metabolite of hydromorphone REFERENCE VALUE Cutoff: 100 24 Endocet, Percocet, Oxycontin 25 Metabolite of oxycodone 26 Numorphan, Opana; Also a metabolite of oxycodone. 27 Metabolite of oxymorphone REFERENCE VALUE Cutoff: 100 28 Metabolite of oxymorphone 29 Actiq, Duragesic, Fentora 30 Metabolite of fentanyl 31 Demerol 32 Metabolite of meperidine 33 Narcan 34 Metabolite of naloxone REFERENCE VALUE Cutoff: 100 35 Dolophine 36 Metabolite of methadone 37 Darvon, Darvocet 38 Metabolite of propoxyphene 39 Tradol, Ultram, Ultracet 40 Metabolite of tramadol 41 Nucynta 42 Metabolite of tapentadol 43 Metabolite of tapentadol REFERENCE VALUE Cutoff: 100 44 Buprenex, Suboxone 45 Metabolite of buprenorphine 46 Metabolite of buprenorphine 47 No opioids were detected. The absence of expected drug(s) and/or drug metabolite(s) may indicate non-compliance, altered pharmacokinetics, inappropriate timing of specimen collection relative to drug administration, diluted/adulterated urine, or limitations of testing. ADDITIONAL INFORMATION This test was developed and its performance characteristics determined by [facility] in a manner consistent with CLIA requirements. This test has not been cleared or approved by the U.S. Food and Drug Administration. Test Performed by: [facility] [address] [place] [address] 48 REFERENCE VALUE Cutoff: 3.0 49 ADDITIONAL INFORMATION This report is intended for use in clinical monitoring and management of patients. It is not intended for use in employment-related testing. This test was developed and its performance characteristics determined by [facility] in a manner consistent with CLIA requirements. This test has not been cleared or approved by the U.S. Food and Drug Administration. Test Performed by: [facility] [address] [place] [address] Procedures Date Code Description Status 09/02/2018 98010 EKG Tracing & Interpretation Completed 06/21/201806203 Inject/Drain Joint/Bursa Major W/O US Completed 02/26/2018 17693 Nerve Conduction 07-08 Studies Completed 02/26/2018 87540 Needle Electromyography Complete, Five Or More Muscles Completed Studied 01/19/201863065 Inject/Drain Joint/Bursa Major W/O US Completed Encounters Type Date Location Provider Dx Diagnosis Office Visit 09/02/2018 [facility] Almaguer NP Z01.818 Encounter for other 1:00p Medicine - preprocedural [place] examination M50.122 Cervical disc disorder at C5-C6 level with radiculopathy M50.123 Cervical disc disorder at C6-C7 level with radiculopathy 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 M19.011 Primary osteoarthritis, right shoulder M75.81 Other shoulder lesions, right shoulder Office Visit 07/29/2018 10:20a [facility] Almaguer NP R42 Dizziness and Medicine - giddiness [place] H53.8 Other visual disturbances S06.2x9D Diffuse Tbi [...] level with radiculopathy Office Visit 03/16/2018 3:00p [place] [facility] Wesley Amador, R43.0 [facility] S06.9x9S Unsp intracranial injury w Loc of unsp duration, sequela M79.1 Myalgia Office Visit 03/12/2018 8:40a [facility] Moustapha Almaguer, M54.12 Radiculopathy, Medicine - ERP PROGRAMMER cervical region [place] Z13.220 Encounter for screening for lipoid disorders [...] Jono Moya MD at [facility]11/01/2018 2:30 pm - Violeta Ma MD at [facility]10/11/2018 1:00 pm - Violeta Ma MD at [facility]09/30/2018 7:30 am - Sophie Patterson PA-C at [facility]09/30/2018 7:30 am - Violeta Ma MD at [facility]09/15/2018 - Violeta Ma, MDM50.122 Cervical disc disorder at C5-C6 level with radiculopathyFollow up:RV one week, one month, three months postop.M50.123 Cervical disc disorder at C6-C7 level with radiculopathy
--- OUTSIDE RECORDS SUMMARY | 2018-09-30 05:51 | XMS REPORT | Continuity of Care Document ---
:1975 External Reference #:[id number] Author Name Doris Pineda Care Team Providers Name Role Phone Luz Maria Durham MD Primary Care Physician Unavailable Payers Type Date Identification Numbers Payment Provider Subscriber Effective: 2017 Policy Number: [id number] Medicaid Lloyd Tom Expires: 2018 Group Name: 1 1 [address] PayID: [id number] [place] [address] Expires: 2018 Policy Number: [id number] [facility] Lloyd Tom PayID: [id number] [address] [address] [place] [address] Effective: 2018 Policy Number: [id number] [employer] Lloyd Tom PayID: [id number] [address] [address] [place] [address] Advance Directives Description No Information Available Problems [...] by Moustapha walton s mouth 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, 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 for pain Meloxicam 03/12 Hx Tablets 7.5mg 60tab 1 -2 tablet M54.12 Moustapha s by mouth 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, 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 - once daily 09/02 as needed with food Hydrocodone-Acetam 03/12 Hx Tablets 5-325mg 120ta 1 tab by Moustapha walton bs mouth 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, 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 - 6 hours as 09/02 needed for [...] Unknown /0000 Tablet By - Mouth Every 2018 Methylprednisolone Hx TBPK 4mg Take as Unknown [...] Test Result H/L Range Note Order 09/02/2018 [facility] Specialist In-House EKG <pending> Lipid Profile 03/16/2018 [facility] Triglycerides 119 mg/dL 1 (Trig/Chol/HDL) [address] [place] [address] [phone] Cholesterol 214 mg/dL 2 HDL Cholesterol 60.5 mg/dL 3 LDL Cholesterol 130 mg/dL 4 Comp Metabolic Panel 03/16/2018 [facility] Sodium 139 mmol/L N 135-145 [address] [place] [address] [phone] Potassium 4.2 mmol/L N 3.5-5.0 Chloride 103 [...] 114.6 >60 5 Drug Abuse 20 03/12/2018 [facility] Urine Amphetamine Negative ng/mL [address] [place] [address] [phone] Urine Barbiturates Negative ng/mL 7 Urine Benzodiazepines Negative ng/mL 8 Urine Cocaine Negative ng/mL 9 Urine Phencyclidine Negative ng/mL Cutoff: 25 Urine Tetrahydrocannabinol Presumptive Posi <SEE NOTE> Abnormal Cutoff: 50 10 ng/mL Creatinine, Urine 142.2 mg/dL Specific [place] 1.021 pH 5.9 Oxidants Negative 11 Adulterants Comment Normal Codeine, Ur Not Detected ng/mL Cutoff: 25 12 Efqgifd-9-eurj-glucuronide, Ur Not Detected ng/mL 13 Morphine, Ur Not Detected ng/mL Cutoff: 25 14 Xybdbjwy-7-tyzx-glucuronide, U Not Detected ng/mL 15 6-monoacetylmorphine, Ur Not Detected ng/mL Cutoff: 25 16 Hydrocodone, Ur Not Detected ng/mL Cutoff: 25 17 Norhydrocodone, Ur Not Detected ng/mL Cutoff: 25 18 Dihydrocodeine, Ur Not Detected ng/mL Cutoff: 25 19 Hydromorphone, Ur Not Detected ng/mL Cutoff: 25 20 Lrrtbxzlzokmh3cnstayspuosvgbw Not Detected ng/mL 21 Oxycodone, Ur Not Detected ng/mL Cutoff: 25 22 Noroxycodone, Ur Not Detected ng/mL Cutoff: 25 23 Oxymorphone, Ur Not Detected ng/mL Cutoff: 25 24 Wbsxwrjtpdh-0-hyvl-glucuronide Not Detected ng/mL 25 Noroxymorphone, Ur Not Detected ng/mL Cutoff: 25 26 Fentanyl, Ur Not Detected ng/mL Cutoff: 2 27 Norfentanyl, Ur Not Detected ng/mL Cutoff: 2 28 Meperidine, Ur Not Detected ng/mL Cutoff: 25 29 Normeperidine, Ur Not Detected ng/mL Cutoff: 25 30 Naloxone, Ur Not Detected ng/mL Cutoff: 25 31 Zrgorrii-2-cxuc-glucuronide, U Not Detected ng/mL 32 Methadone, Ur [...] Ur Not Detected ng/mL Cutoff: 50 40 Efyoziqphv-btpi-xdvsijcxpzq, U Not Detected ng/mL 41 Buprenorphine, Ur Not Detected ng/mL Cutoff: 5 42 Norbuprenorphine, Ur Not Detected ng/mL Cutoff: 5 43 Norbuprenorphine glucuronide Not Detected ng/mL Cutoff: 20 44 Opioid Interpretation See Comment 45 THC Confirmation 03/12/2018 [facility] Urine Carboxy 413 ng/mL [address] [place] [address] [phone] Urine THC Interpretation Positive. 47 1 Desirable: [...] codeine REFERENCE VALUE Cutoff: 100 14 Mary Morrissey MS Contin; Also a minor metabolite (10%) of codeine and can be seen in low concentrations (<2,000 ng/mL) with poppy seed ingestion. 15 Metabolite of morphine REFERENCE VALUE Cutoff: 100 16 Metabolite of heroin 17 Lortab, [place], Vicodin; Also a very minor metabolite of [...] developed and its performance characteristics determined by [facility] in a manner consistent with CLIA requirements. This test has not been cleared or approved by the U.S. Food and Drug Administration. Test Performed by: [facility] - [address] [address] 46 REFERENCE VALUE Cutoff: 3.0 47 ADDITIONAL INFORMATION This report is intended for use in clinical monitoring and management of patients. It is not intended for use in employment-related testing. This test was developed and its performance characteristics determined by [facility] in a manner consistent with CLIA requirements. This test has not been cleared or approved by the U.S. Food and Drug Administration. Test Performed by: [facility] - [address] [address] Procedures Date Code Description Status 09/02/2018 18234 EKG Tracing & Interpretation Completed 06/21/201823254 Inject/Drain Joint/Bursa Major W/O US Completed 02/26/2018 70159 Nerve Conduction 07-08 Studies Completed 02/26/2018 55717 Needle Electromyography Complete, Five Or More Muscles Completed Studied 01/19/201805837 Inject/Drain Joint/Bursa Major W/O US Completed Encounters Type Date Location Provider Dx Diagnosis Office Visit 07/29/2018 [facility] Moustapha Almaguer NP R42 Dizziness and 10:20a Medicine - giddiness [place] H53.8 Other visual disturbances S06.2x9D Diffuse Tbi [...] level with radiculopathy Office Visit 03/16/2018 3:00p [facility] Wesley Hannahney, R43.0 [facility] S06.9x9S Unsp intracranial injury w Loc of unsp duration, sequela M79.1 Myalgia Office Visit 03/12/2018 8:40a [facility] Internal Moustapha Rosina, M54.12 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
--- OUTSIDE RECORDS SUMMARY | 2018-09-30 05:51 | XMS REPORT | Continuity of Care Document ---
:1975 External Reference #:[id number] Author Name Edie Arceo Care Team Providers Name Role Phone Luz Maria Durham MD Primary Care Physician Unavailable Payers Type Date Identification Numbers Payment Provider Subscriber Effective: 2017 Policy Number: [id number] Medicaid Lloyd Tom Expires: 2018 Group Name: 1 1 [address] PayID: [id number] [place] [address] Expires: 2018 Policy Number: [id number] [facility] Lloyd Tom PayID: [id number] [address] [address] [place] [address] Effective: 2018 Policy Number: [id number] [employer] Lloyd Tom PayID: [id number] [address] [address] [place] [address] Advance Directives Description No Information Available Problems [...] by Moustapha walton s mouth 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, [employer] - 6 hours as 03/12 needed for pain Meloxicam 03/12 Hx Tablets 7.5mg 60tab 1 -2 tablet M54.12 Moustapha s by mouth Rosina, [employer] - once daily 09/02 as needed with food Hydrocodone-Acetam 03/12 Hx Tablets 5-325mg 120ta 1 tab by Moustapha walton bs mouth 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, [employer] - 6 hours as 09/02 needed for [...] Facility Test Result H/L Range Note CBC Auto Diff 09/10/2018 [facility] White Blood 10.0 10^3/uL N 3.5-10.[address] [place] [address] [phone] Red Blood Count 4.87 10^6/uL N 4.00-5.40 [...] Cells % 0 Basic Metabolic Panel 09/10/2018 [facility] Sodium 140 mmol/L N 135-145 [address] [place] [address] [phone] Potassium 3.9 mmol/L N 3.5-5.0 Chloride 106 mmol/L N 101-111 Co2 Carbon Dioxide 26 mmol/L N 22-32 Anion Gap 8 mmol/L N 2-11 Glucose 116 mg/dL High 70-100 Blood Urea Nitrogen 16 mg/dL N 6-24 Creatinine 0.87 mg/dL N 0.67-1.17 BUN/Creatinine Ratio 18.4 N 8-20 Calcium 10.0 mg/dL N 8.6-10.3 Egfr Non- 96.7 >60 Egfr 117.0 >60 1 Lipid Profile 03/16/2018 [facility] Triglycerides 119 mg/dL 2 (Trig/Chol/HDL) [address] [place] [address] [phone] Cholesterol 214 mg/dL 3 HDL Cholesterol 60.5 mg/dL 4 LDL Cholesterol 130 mg/dL 5 Comp Metabolic Panel 03/16/2018 [facility] Sodium 139 mmol/L N 135-145 [address] [place] [address] [phone] Potassium 4.2 mmol/L N 3.5-5.0 Chloride 103 [...] Egfr Non- 94.7 >60 Egfr 114.6 >60 6 Drug Abuse 20 03/12/2018 [facility] Urine Amphetamine Negative ng/mL [address] [place] [address] [phone] Urine Barbiturates Negative ng/mL 8 Urine Benzodiazepines Negative ng/mL 9 Urine Cocaine Negative ng/mL 10 Urine Phencyclidine Negative ng/mL Cutoff: 25 Urine Tetrahydrocannabinol Presumptive Posi <SEE NOTE> Abnormal Cutoff: 50 11 ng/mL Creatinine, Urine 142.2 mg/dL Specific Covert 1.021 pH 5.9 Oxidants Negative 12 Adulterants Comment Normal Codeine, Ur Not Detected ng/mL Cutoff: 25 13 Flawrdj-3-dbxt-glucuronide, Ur Not Detected ng/mL 14 Morphine, Ur Not Detected ng/mL Cutoff: 25 15 Fefufykk-6-mpuc-glucuronide, U Not Detected ng/mL 16 6-monoacetylmorphine, Ur Not Detected ng/mL Cutoff: 25 17 Hydrocodone, Ur Not Detected ng/mL Cutoff: 25 18 Norhydrocodone, Ur Not Detected ng/mL Cutoff: 25 19 Dihydrocodeine, Ur Not Detected ng/mL Cutoff: 25 20 Hydromorphone, Ur Not Detected ng/mL Cutoff: 25 21 Zngndzzbiutqj1cfbcxscbevjrsde Not Detected ng/mL 22 Oxycodone, Ur Not Detected ng/mL Cutoff: 25 23 Noroxycodone, Ur Not Detected ng/mL Cutoff: 25 24 Oxymorphone, Ur Not Detected ng/mL Cutoff: 25 25 Mjcfokqwmqm-8-bvli-glucuronide Not Detected ng/mL 26 Noroxymorphone, Ur Not Detected ng/mL Cutoff: 25 27 Fentanyl, Ur Not Detected ng/mL Cutoff: 2 28 Norfentanyl, Ur Not Detected ng/mL Cutoff: 2 29 Meperidine, Ur Not Detected ng/mL Cutoff: 25 30 Normeperidine, Ur Not Detected ng/mL Cutoff: 25 31 Naloxone, Ur Not Detected ng/mL Cutoff: 25 32 Dvpgprsd-0-uvhg-glucuronide, U Not Detected ng/mL 33 Methadone, Ur Not Detected ng/mL Cutoff: 25 34 Eddp, Ur Not Detected ng/mL Cutoff: 25 35 Propoxyphene, Ur Not Detected ng/mL Cutoff: 25 36 Norpropoxyphene, Ur Not Detected ng/mL Cutoff: 25 37 Tramadol, Ur Not Detected ng/mL Cutoff: 25 38 O-desmethyltramadol, Ur Not Detected ng/mL Cutoff: 25 39 Tapentadol, Ur Not Detected ng/mL Cutoff: 25 40 N-desmethyltapentadol, Ur Not Detected ng/mL Cutoff: 50 41 Uwfruarvrv-vrrn-ghpowzgokle, U Not Detected ng/mL 42 Buprenorphine, Ur Not Detected ng/mL Cutoff: 5 43 Norbuprenorphine, Ur Not Detected ng/mL Cutoff: 5 44 Norbuprenorphine glucuronide Not Detected ng/mL Cutoff: 20 45 Opioid Interpretation See Comment 46 THC Confirmation 03/12/2018 [facility] Urine Carboxy 413 ng/mL [address] THC Confirm [place] [id number] [phone] Urine THC Interpretation Positive. 48 1 Because ethnic data is not always [...] 5 Kidney failure <15 (or dialysis) 2 Desirable: <150 Borderline High: 150-199 High: 200-499 Very High: >500 3 Desirable: <200 Borderline High: 200-239 High: >239 4 Low: <40 Desirable: 40-60 High: >60 5 Desirable: <100 Near Optimal: 100-129 Borderline High: 130-159 High: 160-189 Very High: >189 6 Because ethnic data is not always readily [...] 15-29 5 Kidney failure <15 (or dialysis) 7 REFERENCE VALUE Cutoff: 500 8 REFERENCE VALUE Cutoff: 200 9 REFERENCE VALUE Cutoff: 100 10 REFERENCE VALUE Cutoff: 150 11 Presumptive Positive Drug confirmation to follow. Presumptive Positive means that the screening method is positive, but the test needs to be run by a confirmatory method before being finalized. ADDITIONAL INFORMATION This report is intended for use in clinical monitoring or management of patients. It is not intended for use in employment-related testing. 12 REFERENCE VALUE Cutoff: 200 mg/L 13 Tylenol 3 14 Metabolite of codeine REFERENCE VALUE Cutoff: 100 15 Mary Morrissey, MS Contin; Also a minor metabolite (10%) of codeine and can be seen in low concentrations (<2,000 ng/mL) with poppy seed ingestion. 16 Metabolite of morphine REFERENCE VALUE Cutoff: 100 17 Metabolite of heroin 18 Lortab, Rhodelia, Vicodin; Also a very minor metabolite of codeine and impurity (<1%) of oxycodone. 19 Metabolite of hydrocodone 20 Metabolite of hydrocodone 21 Dilaudid, Exalgo; Also a metabolite of hydrocodone and a minor (<5%) metabolite of morphine. 22 Metabolite of hydromorphone REFERENCE VALUE Cutoff: 100 23 Endocet, Percocet, Oxycontin 24 Metabolite of oxycodone 25 Numorphan, Opana; Also a metabolite of oxycodone. 26 Metabolite of oxymorphone REFERENCE VALUE Cutoff: 100 27 Metabolite of oxymorphone 28 Actiq, Duragesic, Fentora 29 Metabolite of fentanyl 30 Demerol 31 Metabolite of meperidine 32 Narcan 33 Metabolite of naloxone REFERENCE VALUE Cutoff: 100 34 Dolophine 35 Metabolite of methadone 36 Darvon, Darvocet 37 Metabolite of propoxyphene 38 Tradol, Ultram, Ultracet 39 Metabolite of tramadol 40 Nucynta 41 Metabolite of tapentadol 42 Metabolite of tapentadol REFERENCE VALUE Cutoff: 100 43 Buprenex, Suboxone 44 Metabolite of buprenorphine 45 Metabolite of buprenorphine 46 No opioids were detected. The absence of expected drug(s) and/or drug metabolite(s) may indicate non-compliance, altered pharmacokinetics, inappropriate timing of specimen collection relative to drug administration, diluted/adulterated urine, or limitations of testing. ADDITIONAL INFORMATION This test was developed and its performance characteristics determined by [facility] in a manner consistent with CLIA requirements. This test has not been cleared or approved by the U.S. Food and Drug Administration. Test Performed by: [facility] [employer] - [address] [id number] 47 REFERENCE VALUE Cutoff: 3.0 48 ADDITIONAL INFORMATION This report is intended for use in clinical monitoring and management of patients. It is not intended for use in employment-related testing. This test was developed and its performance characteristics determined by [facility] in a manner consistent with CLIA requirements. This test has not been cleared or approved by the U.S. Food and Drug Administration. Test Performed by: [facility] [employer] - [address] [address] Procedures Date Code Description Status 09/02/2018 16820 EKG Tracing & Interpretation Completed 06/21/201820991 Inject/Drain Joint/Bursa Major W/O US Completed 02/26/2018 05963 Nerve Conduction 07-08 Studies Completed 02/26/2018 55182 Needle Electromyography Complete, Five Or More Muscles Completed Studied 01/19/201813205 Inject/Drain Joint/Bursa Major W/O US Completed Encounters Type Date Location Provider Dx Diagnosis Office Visit 08/26/2018 [facility] Jono Day M75.51 Bursitis of right 10:00a Of Bhavna Moya MD shoulder M19.011 Primary osteoarthritis, right shoulder M75.81 Other shoulder lesions, right shoulder Office Visit 07/29/2018 10:20a [facility] Internal Moustapha Almaguer, [employer] R42 Dizziness and Medicine - giddiness Paulina H53.8 Other visual disturbances S06.2x9D Diffuse Tbi [...] level with radiculopathy Office Visit 03/16/2018 3:00p [facility] Wesley Amador, R43.0 [facility]ie[facility] S06.9x9S Unsp intracranial injury w Loc of unsp duration, sequela M79.1 Myalgia Office Visit 03/12/2018 8:40a [facility] Internal Moustapha Almaguer, M54.12 Radiculopathy, Medicine - [employer] cervical region Paulina Z13.220 Encounter for screening for lipoid disorders [...] - Jono Moya MD at [facility]11/01/2018 2:30 pm - Violeta Ma MD at [facility]10/11/2018 1:00 pm - Violeta Ma MD at [facility]09/30/2018 7:30 am - Sophie Patterson PA-C at [facility]/30/2018 7:30 am - Violeta Ma MD at [facility]/15/2018 - Violeta Ma MDM50.122 Cervical disc disorder at C5-C6 level with radiculopathyFollow up:RV one week, one month, three months postop.M50.123 Cervical disc disorder at C6-C7 level with radiculopathy
[2018-09-30] MEDS ORDERED: Dexamethasone IV* 4 MG/ML 1 ML (4 MG) IV SLOW PU ONE (06:00)
[2018-09-30] MEDS ORDERED: Famotidine IV* 10 MG/ML 2 ML (20 mg) IV ONE (06:00)
[2018-09-30] MEDS ORDERED: Lactated Ringers 1000 ML Bag* 1,000 ML IV SCH ×2 (06:00→12:00)
[2018-09-30] MEDS ORDERED: Dexamethasone IV* 4 MG/ML 1 ML (4 MG) ONE (06:11)
[2018-09-30] MEDS ORDERED: Famotidine IV* 10 MG/ML 2 ML (20 mg) ONE (06:11)
[2018-09-30] MEDS ORDERED: ceFAZolin 2 GM PREMIX in ORs 2 GM/50 ML BAG IVPB ONE (06:11)
[2018-09-30] MEDS ORDERED: Lidocain 1% EPI 1:100,000 * 30 ML MDV ONE (07:02)
[2018-09-30] MEDS ORDERED: Thrombin 5,000 UNITS* 1 APPLIC KIT - topical use - TOPICAL ONE (07:02)
[2018-09-30] MEDS ORDERED: Lidocaine 1.5% EPI 1:200,000* 30 ML SDV ONE (07:03)
[2018-09-30] MEDS ORDERED: Lidocaine 1% MPF wEPI 200,000* 30 ML SDV ONE (07:03)
[2018-09-30] MEDS ORDERED: Bacitracin IV* 50,000 UNITS INJ ONE (07:03)
[2018-09-30] MEDS ORDERED: fentaNYL* 50 MCG/ML 5 ML VIAL (250 MCG VIAL) ONE (07:23)
[2018-09-30] MEDS ORDERED: Midazolam* 1 MG/ML 5 ML VIAL (5 MG) ONE (07:24)
[2018-09-30] MEDS ORDERED: Propofol* 10 MG/ML 20 ML BTL ONE (07:24)
[2018-09-30] MEDS ORDERED: Lidocaine 2% PF * 5 ML VIAL ONE (07:24)
[2018-09-30] MEDS ORDERED: Atracurium* 10 MG/ML 10 ML VIAL ONE (07:24)
[2018-09-30] MEDS ORDERED: Ondansetron INJ* 2 MG/ML VIAL ONE (07:24)
[2018-09-30] MEDS ORDERED: Succinylcholine* 20 MG/ML 10 ML VIAL ONE (07:25)
[2018-09-30] MEDS ORDERED: fentaNYL* 50 MCG/ML 2 ML VIAL (100 MCG VIAL) ONE ×4 (08:00→11:10)
[2018-09-30] MEDS ORDERED: EPHEDrine (Pressors)* 50 MG/ML VIAL ONE (08:14)
[2018-09-30] MEDS ORDERED: Phenylephrine IV* 40 MCG/ML 10 ML SYRINGE ONE (08:15)
[2018-09-30] MEDS ORDERED: Propofol* 500 MG/50 ML BTL ONE (08:41)
[2018-09-30] MEDS ORDERED: Propofol* 2,000 MG/200 ML BTL ONE (08:49)
[2018-09-30] MEDS ORDERED: Rocuronium* 10 MG/ML VIAL ONE ×2 (08:55→09:13)
[2018-09-30] MEDS ORDERED: Sugammadex * 200 MG/2 ML VIAL IV PUSH ONE (09:13)
[2018-09-30] MEDS ORDERED: Naloxone* 0.4 MG/ML 1 ML VIAL IV PRN (09:22)
[2018-09-30] MEDS ORDERED: Ondansetron INJ* 2 MG/ML VIAL IV PRN ×2 (09:22→11:12)
[2018-09-30] MEDS ORDERED: DiMENhydriNATE IV* 50 MG/ML VIAL IV PUSH PRN (09:22)
[2018-09-30] MEDS ORDERED: Metoprolol Tartrate IV* 1 MG/ML 5 ML VIAL ONE (09:48)
[2018-09-30] MEDS ORDERED: HYDROmorphone INJ1* 1 MG/ML SYRINGE ONE (11:10)
[2018-09-30] MEDS: fentaNYL* 50 MCG/ML 2 ML VIAL (100 MCG VIAL) IV PRN ×2 (11:11→11:25)
[2018-09-30] MEDS ORDERED: Acetaminophen TAB* 325 MG PO PRN (11:12)
[2018-09-30] MEDS ORDERED: HYDROcodone/ACETAMIN 5-325 MG* 1 TAB PO PRN (11:12)
[2018-09-30] MEDS ORDERED: Magnesium Hydroxide LIQ* 30 ML UDC PO PRN (11:12)
[2018-09-30] MEDS ORDERED: Benzocaine/Menthol LOZ* 1 LOZENGE PO PRN (11:14)
[2018-09-30] MEDS: HYDROmorphone INJ1* 1 MG/ML SYRINGE IV PRN ×3 (11:15→11:41)
[2018-09-30] MEDS ORDERED: oxyCODONE TAB* 5 MG TAB ONE (12:02)
[2018-09-30] MEDS: oxyCODONE TAB* 5 MG TAB PO PRN ×3 (12:03→20:09)
[2018-09-30] MEDS ORDERED: Amitriptyline TAB* 25 MG PO SCH (21:00)
[2018-09-30] MEDS: Famotidine TAB* 20 MG PO SCH (21:40)
[2018-09-30] MEDS: Ketorolac INJ* 30 MG/ML 1 ML VIAL IV PRN (21:40)
[2018-10-01] MEDS: oxyCODONE TAB* 5 MG TAB PO PRN ×4 (00:17→13:00)
[2018-10-01] MEDS: Famotidine TAB* 20 MG PO SCH (08:27)
[2018-10-01] MEDS: Ketorolac INJ* 30 MG/ML 1 ML VIAL IV PRN (08:40)
[2018-10-01 12:54] VITALS: BP 128/78
--- NOTE | 2018-10-01 14:47 | PN ---
Progress Note - Progress Note Date of Service: 10/01/18 SOAP: Subjective: [] No events ON. Tolerated procedure well yesterday. Ambulates, Voids, Tolerates PO well. Wants to go home. Preop UEs numbness and pain resolved. Objective: []VSS, Afebrile Wound s,c,d AAOx3, PATEL, CN II-XII grossly intact Motor 5/5 all extremities Sensory grossly intact to light touch Assessment: []43 yom POD#1 ACDF C5-6, 6-7 Plan: []Monitor VS, Neurochecks Encourage ambulation. XR reveals good placement of hardware, good alignment of c spine. DC Planning. Full instructions were given. Ofelia Ma MD
--- NOTE | 2018-10-01 22:42 | OP ---
DATE OF OPERATION: 09/30/18 - ROOM #349 DATE OF : 79 SURGEON: Violeta Ma MD FOUNDATION ENGINEER: ABBEY Alonzo. The case was done with the assistance of a surgical PA because of the complexity of the case. ANESTHESIA: General. PRE-OP DIAGNOSIS: Degenerative disk disease. POST-OP DIAGNOSIS: Degenerative disk disease. OPERATIVE PROCEDURE: The patient underwent anterior cervical discectomy and fusion at C5-C6 and C6-C7 level with PEEK interbody cage, autologous local bone graft DBX, and plates with intraoperative monitoring. ESTIMATED BLOOD LOSS: 15 cc. COMPLICATIONS: None. SUMMARY: The patient is a very pleasant 43-year-old gentleman with complaints of neck pain and upper extremity pain with MRI findings consistent with degenerative disk disease, more profound at C5-C6 and C5-C7 level. After failing conservative treatment modalities, the patient was offered the option of surgical intervention in the form of anterior cervical discectomy and fusion after explaining the expectation, limitations, and possible complications to the patient and his significant other and his mother, with complications including but not limited to bleeding, infection, risk of injury to adjacent structures, coma, paralysis, , need for additional procedure, anesthesia risks, stroke, blindness, cancer, instability, hardware failure, adjacent level disease, pseudoarthrosis, spinal fluid leak, instability, injury to esophagus or trachea, recurrent laryngeal nerve injury, Froylan syndrome, anesthesia risks , the patient was agreeable to proceed with surgery and informed consent was obtained. The patient understood that his condition may not improve and in fact may get worse after the surgery and that he may need to have additional procedures in the future. He also understood that operative plan may be modified according to intraoperative findings and conditions and that his case may be abandoned or done in more than 1 stage. DESCRIPTION OF PROCEDURE: The patient was brought to the operating room, was placed under general anesthesia by the anesthesia team. He was carefully positioned supine on the Melquiades table and all bony prominences were meticulously padded. His shoulder was slightly elevated with a shoulder bump. His skin was prepped and draped in the standard fashion and after appropriate surgical pause and patient identification, a small right transverse incision was performed over the C6 vertebral marking as defined by intraoperative fluoroscopic imaging. Prior to incision, the skin was infiltrated with local anesthetic, the subcutaneous tissue was gently undermined and self-retaining retractors were introduced into the field. The platysma was gently divided with sharp dissection and Bovie cautery. The medial borders of the sternocleidomastoid was identified and the plane between the medial borders of the sternocleidomastoid and the medial structures were then gently developed with the use of sharp and dull dissection. The prevertebral fascia was identified and was gently divided, and the C5-C6 and C6-C7 anterior disk space was well identified, and intraoperative fluoroscopic imaging confirmed the appropriate surgical levels. Self-retaining retractors were introduced further into the field and a discectomy was performed at C5-C6 level after placement of Naeem pins at C5, C6, and C7 levels. After I incised the annulus fibrosus with a #15 surgical blade, a standard discectomy was performed with the use of pituitary rongeurs, Kerrison punches, curettes, and a high-speed drill. Locally harvested bone graft was saved for the harvest part of the procedure after the discectomy, which was performed under microscopic magnification. The posterior ligament was gently divided with #1 Kerrison punches. were performed bilaterally. After the completion of the discectomy, the thecal sac found to be free of any pressure phenomenon and the dura was pulsating nicely. After copious irrigation, meticulous hemostasis was confirmed with meticulous inspection. An 8-mm height PEEK interbody spacer from [employer] was inserted after being filled with locally harvested bone graft mixed with DBX putty. After replacement of the retractors, the procedure was performed over the C6-C7 level, and a 9-mm cage was inserted. After removing the Etoile pins and after confirmation of meticulous hemostasis and copious irrigation, a [employer] ZEVO plate was then placed and secured in place with 13-mm titanium screws. The self -retaining retractors were removed and after copious irrigation and confirmation of meticulous hemostasis and meticulous inspection and after confirmation of excellent placement of the hardware with intraoperative fluoroscopic imaging, the wound was closed by layers with 2-0 interrupted sutures to approximate the platysma while the subcutaneous tissue was approximated with 2-0 interrupted Vicryl sutures. The skin was then covered with Dermabond. At the end of the procedure, all counts were reported to be correct. The patient remained hemodynamically stable throughout the case. Intraoperative electrophysiological monitoring remained stable throughout the case. The patient was then extubated and was transferred to Recovery in excellent condition. [id number]/[facility] #: [id number] JAE
== END 2018-10-01 14:44 | disposition home or self-care (01) | DRG 321 ==
LOC: AA 05:47 → SSU 11:12
PROVIDERS: ADMIT Neurological Surgery; ATTEND Neurological Surgery
PROC: 0RB30ZZ Excision of Cervical Vertebral Disc, Open Approach (ICD-10-PCS; 2018-09-30)
PROC: 0RG20A0 Fusion of 2 or more Cervical Vertebral Joints with Interbody Fusion Device, Anterior Approach, Anterior Column, Open Approach (ICD-10-PCS; principal; 2018-09-30 07:30)
DX: M50.122 Cervical disc disorder at C5-C6 level with radiculopathy (principal); G89.29 Other chronic pain; Z87.820 Personal history of traumatic brain injury; Z91.81 History of falling; Z88.8 Allergy status to other drugs, medicaments and biological substances; Z91.048 Other nonmedicinal substance allergy status; Z87.891 Personal history of nicotine dependence
CPT/HCPCS: 72020; 72040; A9270-GY; J0330; J0690; J1100; J1170; J1885; J2001; J2250; J2405; J2704; J3010; J3490

== ENCOUNTER → 2019-04-01 10:25 | Day surgery (SDC) | payer OTHER ==
[~2019-04-01 10:25] MED LIST changes: +Acetaminophen IV 1GM/100ML * 1,000 MG/100 ML VIAL IVPB ONE; +Acetaminophen IV 1GM/100ML * 100 ML ONE; +Bupivacaine 0.5% W/EPI SDV* 30 ML VIAL ONE; +Dexamethasone IV* 4 MG/ML 1 ML (4 MG) IV SLOW PU ONE; +Dexamethasone IV* 4 MG/ML 1 ML (4 MG) ONE; +DiMENhydriNATE IV* 50 MG/ML VIAL IV PUSH PRN; +EPINEPHRINE 1 MG/ML 1 ML VIAL ONE; +Famotidine TAB* 20 MG ONE; +Famotidine TAB* 20 MG PO ONE; +HYDROmorphone INJ1* 1 MG/ML SYRINGE IV PRN; +HYDROmorphone INJ1* 1 MG/ML SYRINGE ONE; +Ketorolac INJ* 30 MG/ML 1 ML VIAL IV PRN; +Ketorolac INJ* 30 MG/ML 1 ML VIAL ONE; +Lactated Ringers 1000 ML Bag* 1,000 ML IV SCH; +Lidocaine 1% MPF ** 5 ML VIAL ONE; +Midazolam* 1 MG/ML 5 ML VIAL (5 MG) ONE; +Naloxone* 0.4 MG/ML 1 ML VIAL IV PRN; +Ondansetron INJ* 2 MG/ML VIAL ONE; +Propofol* 10 MG/ML 20 ML BTL ONE; +ROPIVACAINE 5 MG/ML 30 ML BTL (0.5%) ONE; +ceFAZolin 2 GM in NS PREMIX(*) 2 GM/100 ML BAG IVPB ONE; +fentaNYL* 50 MCG/ML 2 ML VIAL (100 MCG VIAL) IV PRN; +fentaNYL* 50 MCG/ML 2 ML VIAL (100 MCG VIAL) ONE; +oxyCODONE TAB* 5 MG TAB ONE; +oxyCODONE TAB* 5 MG TAB PO PRN
[2019-04-01 16:04] VITALS: BP 105/75
--- NOTE | 2019-04-02 22:04 | OP ---
OPERATIVE REPORT: DATE OF OPERATION: 04/01/19 DATE OF : 79 SURGEON: Jono Moya MD. [facility] MANAGER: ABBEY Mcdonald. ANESTHESIOLOGIST: Dr. Jono Lynch. ANESTHESIA: General anesthesia, regional interscalene block anesthesia. Local anesthesia, 10 cc of Marcaine 0.5% with epinephrine to the open incision in the upper arm. PRE-OP DIAGNOSES: 1. Right shoulder acromioclavicular joint osteoarthritis. 2. Right shoulder subacromial impingement and bursitis, rotator cuff tendonitis, possible small inte rstitial tear; supraspinatus. POST-OP DIAGNOSES: 1. Right shoulder acromioclavicular joint osteoarthritis. 2. Right shoulder subacromial impingement and bursitis. 3. Right shoulder rotator cuff tendonitis, possibly interstitial tear; supraspinatus, definite low-g rade partial-thickness underside tear; supraspinatus 4. Right shoulder proximal long head biceps tendinosis and superior labral tear. OPERATIVE PROCEDURES: 1. Right shoulder arthroscopic rotator cuff tendon repair with Regeneten biologic patch, supraspinat us. 2. Right shoulder arthroscopic subacromial depression. 3. Right shoulder arthroscopic distal clavicle resection. 4. Right shoulder open proximal biceps tenodesis. ANTIBIOTICS: Ancef 2 g IV. IV FLUIDS: 1400 cc crystalloid. [id number] TIME: 70 minutes. ARTHROSCOPIC FLUID UTILIZED: Not recorded by me. SPECIMEN: None. IMPLANTS: [employer] Regeneten biologic patch, size medium. Arthrex proximal biceps button x1 . COMPLICATIONS: None. ESTIMATED BLOOD LOSS: Minimal. INDICATIONS FOR PROCEDURE: The patient is a 43-year-old man, left-hand dominant, with a history of t raumatic brain injury whom I have been following in the clinic for some time for right shoulder pain. The patient responded insufficiently to the full spectrum of nonoperative treatment and wanted surg leta. The patient had undergone ACDF surgery by Dr. Ma in August 2018. Per report, that ailin mike resulted in a successful bony fusion and the patient was okay for shoulder surgery. Imaging, x-ray, and MRA had shown definitive AC joint arthritis, subacromial bursitis and impingement , and rotator cuff tendonitis with some signal change within the supraspinatus representing a possibl e small interstitial tear. I booked the patient for surgery, right shoulder arthroscopic subacromial depression and distal clavi gary resection. I also scheduled the patient for evaluation and treatment of the rotator cuff and bic eps. I spoke with the patient about rotator cuff debridement, suture anchor repair, and biologic pat ch supplementation depending on the need. I also spoke to him about biceps release versus tenodesis. Discussed the risks and potential complications of surgery. Certainly, this is a patient with chroni c pain and concomitant cervical spine base pain along with his significant shoulder symptoms, so I ke pt that in perspective throughout the preoperative and perioperative course. DESCRIPTION OF PROCEDURE: In preoperative holding, the patient signed a written consent. Operative extremity was marked in preoperative holding. The patient underwent interscalene regional nerve bloc k in preoperative holding by anesthesia. The patient was taken back to the operating room and placed supine on the operating room table. The patient was sedated and intubated. Transferred into lateral decubitus position. Right shoulder up. Axillary roll placed. Henderson bag hardened. All bony prominences were padded. The right upper ex tremity in the appropriate amount of forward flexion and abduction with 15 pounds of longitudinal tra ction. The right shoulder prepped and draped. Surgical time-out performed. I entered the glenohumeral joint from posterior with a spinal needle and injected 30 cc of normal chandrakant ine. I then established a posterior glenohumeral joint portal. No articular cartilages were encounte red. No loose body. No subscapularis tendon tear. I established an anterior glenohumeral joint portal under direct visualization. I examined the biceps and superior labrum. The biceps had both synovitis and inflamed tissue along i ts length, with an area like that both distally where I exited the joint but also proximally close to its origin. Then, there was some tearing of the superior labrum, which seems slightly unstable to spring brice. I used a scissors to cut the long head of the biceps tendon and it retracted. I just smoothed out th e stump with an arthroscopic shaver. I next evaluated the rotator cuff. There was some clear tendonitis present with several areas of justin e roughness to the tendon visibly. There was also some footprint visible, 1 to 2 mm, representing a very low-grade partial-thickness undersurface tear. I removed instruments and fluid from the glenohumeral joint and then I entered the subacromial space. I made lateral and then posterolateral portals under direct visualization. The subacromial space had a significant amount of bursitis. I debrided this with an arthroscopic sha ilia. I then evaluated the rotator cuff. There was no bursal- sided tearing. Given the undersurface tear visible arthroscopically and likely the intrasubstance tear visible on th e MRI preoperatively, I thought it was reasonable to get this tendon to heal and be most robust with a Regeneten biologic patch and I asked for that to be opened. I then performed a subacromial decompression, removing some of the undersurface of the anterior curve of the acromion, flattening out the undersurface with an arthroscopic aleksandar. I did this with the bur r after debriding soft tissue from the undersurface with a VAPR. I next moved to the AC joint. I debrided synovitic tissue with a VAPR and then removed 8 mm of the d istal end of the clavicle with arthroscopic aleksandar. I returned to the rotator cuff. I made a superolateral portal. Introduced through my lateral portal the medium-sized Regeneten biologic patch, placed it over the supraspinatus. I placed the PLLA bioa bsorbable leo through superolateral portals that I made. I actually made a total of 2 superolate ral portals to facilitate excellent staple placement. The leo all engaged well. The graft was very stable to rotation of the humerus. I removed instruments and fluid from the subacromial space. I closed skin incisions with figure-of-e ight and [id number] stitches using nylon 3.0 suture. I partially softened the henderson bag and turned the patient to a lazy supine position, then reinflated o r re-hardened the henderson bag. I made a standard skin incision over the proximal anteromedial upper arm. I dissected down to the bi cipital groove. I removed long head of biceps tendon. I placed retractors and debrided anterior hum erus with periosteal elevator and Bovie. I placed my Beath pin unicortically. I placed 3 stitches in the long head of the biceps tendon using FiberLoop suture. I loaded button. I passed the button into the humerus and flipped it, tied a knot, and then tied a second tenodesis st itch using a free needle. Irrigation. Closure of the subcutaneous tissue with buried simple stitches using Vicryl 3-0 suture. Closure of t he subcuticular layer with a running stitch using Monocryl 4-0 suture. Mastisol, Steri-Strips,4x4s, Tegaderm. Prior to placing the dressing, I placed 10 cc of local anesthetic, Marcaine 0.5% with epinephrine abo ut that skin incision. For the arthroscopic skin incisions, I applied Xeroform, 4x4s, ABDs, foam tape. The patient was placed in a sling with an abduction pillow. He was awakened, extubated, and transfer red to PACU. DISPOSITION: Wound care instructions provided. The patient will start physical therapy immediately. I wrote for the patient a short course of Keflex antibiotic to prevent infection of the upper arm s kin incision. The patient was given hydrocodone for pain control as needed over and above his chroni c narcotic intake. The patient will follow up with me in clinic 10 to 14 days postoperatively. He wi ll remain in the sling until at least that clinic visit. [id number]/[facility] #: [id number]
== END | disposition home or self-care (01) ==
LOC: OR 10:25
PROVIDERS: ATTEND Orthopaedic Surgery
DX: M75.41 Impingement syndrome of right shoulder (principal); M19.011 Primary osteoarthritis, right shoulder; M75.51 Bursitis of right shoulder; M75.101 Unspecified rotator cuff tear or rupture of right shoulder, not specified as traumatic; M75.21 Bicipital tendinitis, right shoulder; Z87.891 Personal history of nicotine dependence; Z87.820 Personal history of traumatic brain injury; M54.2 Cervicalgia; G89.18 Other acute postprocedural pain
CPT/HCPCS: A9270-GY; C1713; C1776; J0690; J1100; J1170; J1885; J2250; J2405; J2704; J2795; J3010